=== PATIENT | female | born 1985 | race Two or more races ===

== ENCOUNTER → 2017-07-26 | Outpatient (CLI) | payer OTHER ==
[~2017-07-26] MED LIST: Augmentin 875-1 EACH PO; CHOL10002; IBUP800; IBUP800 PO; Naprosyn500 MG PO; OXYACE5T PO; RXOXYACE PO; Verotin-Gr Cap1 EACH PO
[2017-07-26 14:50] LABS: Specimen Source URINE
[2017-07-27 12:15] LABS: Source Urine
== END ==
LOC: LAB 14:48
PROVIDERS: Obstetrics & Gynecology
DX: Z11.3 Encounter for screening for infections with a predominantly sexual mode of transmission (principal)
CPT/HCPCS: 87491; 87591

== ENCOUNTER → 2017-08-23 | Outpatient (CLI) | payer OTHER ==
[~2017-08-23] MED LIST changes: -CHOL10002; -IBUP800; -Verotin-Gr Cap1 EACH PO
[2017-08-23 14:37] LABS: Candida species (DNA Probe) Negative (NEGATIVE); G. vaginalis (DNA Probe) Negative (NEGATIVE); T. vaginalis (DNA Probe) Negative (NEGATIVE)
== END | disposition home or self-care (01) ==
LOC: LAB 12:12 → LAB SHORT 12:12
PROVIDERS: Obstetrics & Gynecology
DX: N76.0 Acute vaginitis (principal)
CPT/HCPCS: 87480; 87510; 87660

== ENCOUNTER 2018-01-10 11:38 | Inpatient (IN) | payer OTHER ==
[~2018-01-10] VITALS: Ht 162.6 cm; Wt 73.5 kg
[2018-01-10 12:52] LABS: BASOPHILS ABSOLUTE AUTO 0.02 K/mm3 (0.00-0.23); BASOPHILS PERCENT AUTO 0 % (0-2); EOSINOPHILS ABSOLUTE AUTO 0.01 K/mm3 (0.00-0.68); EOSINOPHILS PERCENT AUTO 0 % (0-6); Hematocrit 38.5 % (33.0-51.0); Hemoglobin 13.4 g/dL (11.5-16.0); IMMATURE GRAN ABSOLUTE AUTO 0.03 K/mm3 (0.00-0.10); IMMATURE GRAN PERCENT AUTO 0 % (0-1); LYMPHOCYTES ABSOLUTE AUTO 1.26 K/mm3 (0.84-5.20); LYMPHOCYTES PERCENT AUTO 14 % (21-46); MONOCYTES ABSOLUTE AUTO 0.66 K/mm3 (0.16-1.47); MONOCYTES PERCENT AUTO 7 % (4-13); Mean Corpuscular HGB 30.5 pg (26.0-34.0); Mean Corpuscular HGB Conc 34.8 g/dL (31.5-36.5); Mean Corpuscular Volume 88 fL (80-100); Mean Platelet Volume 12.4 fL (9.1-12.4); NEUTROPHILS ABSOLUTE AUTO 7.19 K/mm3 (1.96-9.15); NEUTROPHILS PERCENT AUTO 79 % (41-73); Platelet Count 140 K/mm3 (150-400); RDW Coefficient Variation 12.9 % (11.7-14.2); RDW Standard Deviation 41.6 fL (35.1-46.3); Red Blood Cell Count 4.39 M/mm3 (3.80-5.20); White Blood Cell Count 9.17 K/mm3 (4.00-11.30)
[2018-01-10] MEDS ORDERED: Verotin-Gr Cap1 EACH PO (13:25)
[2018-01-10] MEDS ORDERED: CHOL10002 (13:25)
[2018-01-11 06:32] LABS: Hematocrit 34.6 % (33.0-51.0); Mean Corpuscular HGB 30.5 pg (26.0-34.0); Mean Corpuscular HGB Conc 34.7 g/dL (31.5-36.5); Mean Corpuscular Volume 88 fL (80-100); Mean Platelet Volume 12.6 fL (9.1-12.4); Platelet Count 142 K/mm3 (150-400); RDW Standard Deviation 42.3 fL (35.1-46.3); Red Blood Cell Count 3.93 M/mm3 (3.80-5.20); White Blood Cell Count 20.38 K/mm3 (4.00-11.30)
[2018-01-12 06:05] LABS: Hematocrit 33.7 % (33.0-51.0); Hemoglobin 11.5 g/dL (11.5-16.0); Mean Corpuscular HGB 30.7 pg (26.0-34.0); Mean Corpuscular HGB Conc 34.1 g/dL (31.5-36.5); Mean Corpuscular Volume 90 fL (80-100); Mean Platelet Volume 12.3 fL (9.1-12.4); Platelet Count 126 K/mm3 (150-400); RDW Coefficient Variation 13.4 % (11.7-14.2); RDW Standard Deviation 43.9 fL (35.1-46.3); Red Blood Cell Count 3.75 M/mm3 (3.80-5.20); White Blood Cell Count 13.63 K/mm3 (4.00-11.30)
[2018-01-12] MEDS ORDERED: IBUP800 (09:45)
== END 2018-01-12 10:20 | disposition home or self-care (01) | DRG 775 ==
LOC: BC 11:38 → OBS 11:38 → BC 12:19
PROVIDERS: Obstetrics & Gynecology
PROC: 10E0XZZ Delivery of Products of Conception, External Approach (ICD-10-PCS; principal; 2018-01-11)
PROC: 0KQM0ZZ Repair Perineum Muscle, Open Approach (ICD-10-PCS; 2018-01-11)
PROC: 10907ZC Drainage of Amniotic Fluid, Therapeutic from Products of Conception, Via Natural or Artificial Opening (ICD-10-PCS; 2018-01-11)
DX: O70.1 Second degree perineal laceration during delivery (principal); Z37.0 Single live birth; Z3A.40 40 weeks gestation of pregnancy
CPT/HCPCS: 36415; 59025; 81003; 85025; 85027; 85460; 96372; J1885; J2210; J2590; J2790; J7120

== ENCOUNTER 2022-11-11 08:56 | Day surgery (SDC) | payer OTHER ==
[~2022-11-11] VITALS: Ht 165.1 cm; Wt 61.3 kg
[2022-11-11] VITALS (9 sets, daily range): BP systolic 93–109; BP diastolic 65–82
[~2022-11-11 08:56] MED LIST changes: +CHOL10002; +IBUP800; +Verotin-Gr Cap1 EACH PO
--- NOTE | 2022-11-11 09:49 | NUR ---
Ambulatory in Day Surgery History, Chart, Medications and Allergies reviewed before start of procedure. Pre-Op teaching done. Pt verbalizes understanding. Patient States Post-Procedure ride home has been arranged.
--- NOTE | 2022-11-11 12:33 | NUR ---
1220 RECIEVED PT FROM [facility],S/P UMBILICAL HERNIA SURGERY. VSS UMBILICAL DRESSING W/CRISTI AND OPSITE, D&I. PAIN 06/25. DENIES NAUSEA. 1225 PO FLUIDS,CRAKERS AND PUDDING GIVEN, PB WELL
--- NOTE | 2022-11-11 12:58 | NUR ---
REPORT RECEIVED FROM HAILEY ADEN RN. CARE ASSUMED. VSS AND CONSISTENT WITH PT BASELINE. PT SITTING UP TALKING AND TOLERATING PO FLUIDS AND FOOD. PT REPORTS 2/10 PAIN TO ABDOMEN AFTER NORCO ADMINISTRATION.
--- NOTE | 2022-11-11 13:10 | NUR ---
Patient up to Ambulate independently. Gait steady. VSS AND CONSISTENT WITH PT BASELINE. Discharge instructions reviewed with patient. Patient verbalizes understanding. Copy given to patient to take home. Dressing to procedure site clean, dry, intact with no visible drainage, swelling, erythema or bruising noted. Patient States Post-Procedure ride home has been arranged. Discharged via wheelchair to private car for ride home. PT BELONGINGS RETURNED TO PT.
== END 2022-11-11 13:13 | disposition home or self-care (01) ==
LOC: ORSCMMR 08:56 → ORD 10:15 → ORSCMMR 10:15
PROVIDERS: Surgery
PROC: 0WQF0ZZ Repair Abdominal Wall, Open Approach (ICD-10-PCS; principal; 2022-11-11 10:15)
DX: K42.0 Umbilical hernia with obstruction, without gangrene (principal)
CPT/HCPCS: A9270; J0690; J1100; J2250; J2370; J2405; J2704; J2795; J3010; J7120

== ENCOUNTER 2025-03-08 05:43 | Inpatient (IN) | payer OTHER ==
[~2025-03-08] VITALS: Ht 162.6 cm; Wt 71.8 kg
[2025-03-08] VITALS (10 sets, daily range): BP systolic 96–123; BP diastolic 60–76
[2025-03-08] MEDS ORDERED: OXYTOCIN/RINGER'S LACTATE 500 ML IV PRN (06:20)
[2025-03-08] MEDS ORDERED: Carboprost Tromethamine 250 MCG/ML 1ML Amp IM PRN (06:20)
[2025-03-08] MEDS ORDERED: Tranexamic Acid 100 ML IV SCH (06:20)
[2025-03-08] MEDS ORDERED: Oxytocin 10 Unit / ML Vial IM PRN (06:20)
[2025-03-08] MEDS ORDERED: Ondansetron HCl 2 MG / ML 2ML Vial IV PRN (06:20)
[2025-03-08] MEDS ORDERED: Methylergonovine Maleate 0.2MG / ML 1ML Amp IM PRN ×2 (06:20→06:35)
[2025-03-08] MEDS ORDERED: Rho(D) Immune Globulin 300 MCG / SYR IM PRN (06:30)
[2025-03-08] MEDS ORDERED: Oxytocin 10 Unit / ML Vial IM ONE (06:30)
[2025-03-08] MEDS ORDERED: Benzocaine Topical Anesthetic Spray 60GM TOP PRN (06:30)
[2025-03-08] MEDS ORDERED: FLU VACC TS2025-26(6MOS UP)/PF 45 MCG/0.5 ML SYRINGE IM SCH (06:35)
[2025-03-08] MEDS ORDERED: Witch Hazel/Glycerin PADS TOP PRN (07:10)
[2025-03-08 07:39] LABS: BASOPHILS ABSOLUTE AUTO 0.03 K/mm3 (0.00-0.23); BASOPHILS PERCENT AUTO 0 % (0-2); EOSINOPHILS ABSOLUTE AUTO 0.02 K/mm3 (0.00-0.68); EOSINOPHILS PERCENT AUTO 0 % (0-6); Hematocrit 39.3 % (33.0-51.0); Hemoglobin 13.4 g/dL (11.5-16.0); IMMATURE GRAN ABSOLUTE AUTO 0.04 K/mm3 (0.00-0.10); IMMATURE GRAN PERCENT AUTO 0 % (0-1); LYMPHOCYTES ABSOLUTE AUTO 1.03 K/mm3 (0.84-5.20); LYMPHOCYTES PERCENT AUTO 10 % (21-46); MONOCYTES ABSOLUTE AUTO 0.44 K/mm3 (0.16-1.47); MONOCYTES PERCENT AUTO 4 % (4-13); Mean Corpuscular HGB Conc 34.1 g/dL (31.5-36.5); Mean Corpuscular Volume 89 fL (80-100); NEUTROPHILS ABSOLUTE AUTO 8.97 K/mm3 (1.96-9.15); NEUTROPHILS PERCENT AUTO 85 % (41-73); NRBC ABSOLUTE 0.00 K/mm3 (0.00-0.02); NRBC Auto 0.0 /100 WBC (0.0-0.2); Platelet Count 169 K/mm3 (150-400); RDW Coefficient Variation 13.4 % (11.7-14.2); RDW Standard Deviation 43.7 fL (35.1-46.3)
[2025-03-08] MEDS ORDERED: Prenatal Vit/FE Fumarate/FA 1 Tab PO SCH (09:00)
[2025-03-08] MEDS ORDERED: Oxytocin 10 Unit / ML Vial XX ONE (12:52)
[2025-03-09 07:38] VITALS: BP 101/60
[2025-03-11 12:30] LABS: HEPATITIS C AB CIA INTERP Negative (Negative); HEPATITIS C ANTIBODY CIA INDEX <0.02 IV
== END 2025-03-09 11:00 | disposition home or self-care (01) | DRG 807 ==
LOC: OBS 05:43 → BC 05:44 → OBS 05:52 → BC 05:52
PROVIDERS: ADMIT Advanced Practice Midwife
PROC: 10E0XZZ Delivery of Products of Conception, External Approach (ICD-10-PCS; principal; 2025-03-08)
PROC: 3E0234Z Introduction of Serum, Toxoid and Vaccine into Muscle, Percutaneous Approach (ICD-10-PCS; 2025-03-08)
DX: O26.893 Other specified pregnancy related conditions, third trimester (principal); Z37.0 Single live birth; Z3A.38 38 weeks gestation of pregnancy; Z67.31 Type AB blood, Rh negative
CPT/HCPCS: 36415; 85025; 85460; 86803; 86850; 86900; 86901; A9270; J2590; J2791